=== PATIENT | male | born 2000 | race Two or more races ===

== ENCOUNTER 2020-09-12 17:12 | Emergency (ER) | payer BC, OTHER ==
[~2020-09-12] VITALS: Ht 177.8 cm; Wt 77.1 kg
[2020-09-12 19:25] VITALS: BP 152/98
== END 2020-09-12 21:23 | disposition home or self-care (01) ==
LOC: ER 17:12
DX: S16.1XXA Strain of muscle, fascia and tendon at neck level, initial encounter (principal); S12.490A Other displaced fracture of fifth cervical vertebra, initial encounter for closed fracture; S12.590A Other displaced fracture of sixth cervical vertebra, initial encounter for closed fracture; S12.690A Other displaced fracture of seventh cervical vertebra, initial encounter for closed fracture; V49.9XXA Car occupant (driver) (passenger) injured in unspecified traffic accident, initial encounter; Y93.89 Activity, other specified; Y92.89 Other specified places as the place of occurrence of the external cause; Y99.8 Other external cause status
CPT/HCPCS: 70450; 72040; 72125